=== PATIENT | male | born 1955 | race Caucasian/White ===

== ENCOUNTER 2019-11-15 12:01 | Inpatient (IN) | payer BC, MEDICARE ==
[~2019-11-15] VITALS: Ht 180.3 cm; Wt 83.9 kg
[~2019-11-15 12:01] MED LIST: VENL25TA4 PO
--- NOTE | 2019-11-15 12:02 | NUR ---
ADDISON [id number] FROM HOME C/O ABDOMINAL PAIN AND LOWER BACK PAIN, LAST BM 2 WEEKS AGO, TO ER BED 10, HOOKED TO MONITOR, CHANGED TO HOSP GOWN, PROVIDED WARM BLANKET, PATIENT AOx4, BREATHING EVEN AND UNLABORED, DR ESCOBAR AT BEDSIDE
[2019-11-15 12:34] LABS: BASOPHILS # (AUTO) 0.1 /CMM (0.0-0.2); BASOPHILS % (AUTO) 0.5 % (0.0-2.0); CALCIUM, SERUM 9.8 mg/dL (8.5-10.1); CREATININE 1.2 mg/dL (0.6-1.3); EOSINOPHILS % (AUTO) 0.3 % (0.0-6.0); HEMATOCRIT 54 % (39-51); HEMOGLOBIN 18.5 g/dL (13.5-17.5); LYMPHOCYTES # (AUTO) 1.9 /CMM (0.8-4.8); LYMPHOCYTES % (AUTO) 17.3 % (20.0-44.0); MEAN CORPUSCULAR HGB CONC 34 g/dl (31.0-36.0); MEAN CORPUSCULAR VOLUME 87 fL (80-96); MONOCYTES % (AUTO) 8.9 % (2.0-12.0); PLATELET COUNT (AUTO) 183 /CMM (150-450); POTASSIUM 4.2 mmol/L (3.5-5.1); RED BLOOD CELL COUNT(AUTO) 6.26 MIL/uL (4.5-6.0)
[2019-11-15 12:41] LABS: ALBUMIN 4.7 g/dL (3.4-5.0); BILIRUBIN,DIRECT 0.4 mg/dL (0.0-0.2); BILIRUBIN,TOTAL 1.3 mg/dL (0.2-1.0); TOTAL PROTEIN, SERUM 8.6 g/dL (6.4-8.2)
[2019-11-15] MEDS ORDERED: ACETAMINOPHEN ES 500 MG TABLET PO ONE (13:00)
[2019-11-15 13:14] LABS: BAND % (MANUAL) 2 % (0.0-5.0); LYMPHOCYTES % (MANUAL) 15 % (16-48); MONOCYTES % (MANUAL) 9 % (0-11.0); NEUTROPHILS % (MANUAL) 74 (42-76)
[2019-11-15] MEDS ORDERED: IV NS 0.9% 250 ML IV ONE (13:18)
[2019-11-15] MEDS ORDERED: IOHEXOL-350 100 ML VIAL IV ONE (13:18)
[2019-11-15] MEDS ORDERED: CT SWABBABLE VALVE TRANS SET 1 EA INFUS.SET MC ONE (13:18)
[2019-11-15] MEDS ORDERED: ACETAMINOPHEN ES 500 MG TABLET ONE (13:22)
--- NOTE | 2019-11-15 13:26 | NUR ---
WHEELED OUT VIA RNEY FOR CT SCAN
--- NOTE | 2019-11-15 14:41 | NUR ---
paged dr. veloz
--- NOTE | 2019-11-15 15:17 | NUR ---
ROOM ASSISGNMENT: [id number] MS
--- NOTE | 2019-11-15 15:33 | NUR ---
INSERTED NGT BUT PT DOES NOT WANT TO GO FURTHER WITH PROCEDURE. PT REFUSES TO HAVE ANOTHER ATTEMPT. EXPLAINED RISK AND BENEFIT BUT PT STILL REFUSING.
--- NOTE | 2019-11-15 15:41 | NUR ---
REPORT GIVEN TO ERNA JACINTO OF [facility] UN[facility]
[2019-11-15] MEDS ORDERED: IV D5/0.45 NACL 1,000 ML IV PRN (15:44)
--- NOTE | 2019-11-15 15:56 | NUR ---
WATER ENEMA DONE. PATIENT TOLERATED PROCEDURE WELL.
[2019-11-15] MEDS ORDERED: HYDROCODONE/APAP 5/325MG 1 EACH TABLET PO PRN (16:00)
[2019-11-15] MEDS ORDERED: MORPHINE SULFATE INJ 2 MG/ML DISP.SYRIN IV PRN (16:00)
[2019-11-15] MEDS ORDERED: MAGNESIUM HYDROXIDE 30 ML UDC PO PRN (16:00)
[2019-11-15] MEDS ORDERED: ACETAMINOPHEN 325 MG TABLET PO PRN (16:00)
[2019-11-15] MEDS ORDERED: Z GUARD REMEDY 2 OZ OINT TP PRN (16:00)
[2019-11-15] MEDS ORDERED: ONDANSETRON HCL/PF 4 MG/2 ML VIAL IVP PRN (16:00)
[2019-11-15] MEDS ORDERED: MAG HYDROX/AL HYDROX/SIMETH 30 ML UDC PO PRN (16:00)
[2019-11-15] MEDS ORDERED: ZOLPIDEM TARTRATE 5 MG TABLET PO PRN (16:00)
--- NOTE | 2019-11-15 16:46 | NUR ---
MS RN ADMITTING NOTE Received report from Mata in ER. Patient is A/O x4, showing no signs of acute distress or SOB, 95% on RA. BP 124/93 HR 91 T 97.3F RR 16. Patient report 0/10 on the pain scale. IV line in the RAC #18g is clean and intact. Skin assessed, skin is intact. Belongings at the bedside, belongings list done. Bed is in lowest position, side rails x3 in upright position, call light is within reach and patient is aware of how to call for assistance when needed. WIll continue with plan of care.
--- NOTE | 2019-11-15 17:18 | NUR ---
RN NOTE Received call that patient is to go into surgery for Sigmoidoscopy. Consent signed and placed in chart. Checklist done.
[2019-11-15] MEDS ORDERED: ANESTHESIA TRAY IN PYXIS 1 EA TRAY MC ONE (17:38)
--- NOTE | 2019-11-15 17:43 | NUR ---
RN NOTE Patient went down for surgery with Dr. Boroks.
--- NOTE | 2019-11-15 18:31 | NUR ---
RN NOTE Patient is back from surgery at 1830, A/O x4, showing no signs of acute distress or SOB, BP 131/89, HR 78, RR 14, O2 98% on RA T 97.8F pain 0/10. IV line in the RAC #18g is clean and intact. Bed is in lowest position, side rails x3 in upright position, call light is within reach and patient is aware of how to call for assistance when needed. Will endorse to commercial lender
--- NOTE | 2019-11-15 19:30 | NUR ---
MS RN OPENING NOTES RECEIVED PATIENT IN BED ALERT AND ORIENTED X 3. VERBALLY RESPONSIVE AND ABLE TO FOLLOW DIRECTIONS. BREATHING REGULAR AND UNLABORED ON ROOM AIR. RIGHT AC G18 IV LINE INTACT AND PATENT, INFUSING WELL WITH NO BLEEDING OR S/S OF INFILTRATION NOTED. DENIES ANY SUICIDAL/HOMICIDAL IDEATION. NO COMPLAINTS OF PAIN/DISCOMFORT REPORTED AT THIS TIME. BED LOW AND LOCKED, ON SEMI FOWLERS POSITION. CALL LIGHT IN REACH. WILL CONTINUE TO MONITOR.
[2019-11-15 20:00] VITALS: BP 142/88
--- NOTE | 2019-11-15 23:00 | NUR ---
MS RN NOTES CALLED AND SPOKE TO REGARDING PATIENT WANTING TO HAVE WATER, ORDERED OK FOR ICE CHIPS.
--- NOTE | 2019-11-16 06:45 | NUR ---
MS RN CLOSING NOTES PATIENT IN BED ALERT AND ORIENTED X 3. VERBALLY RESPONSIVE AND ABLE TO FOLLOW DIRECTIONS. BREATHING REGULAR AND UNLABORED ON ROOM AIR. RIGHT AC G18 IV LINE PATENT AND INFUSING WELL. NO COMPLAINTS OF PAIN/DISCOMFORT REPORTED AT THIS TIME. BED LOW AND LOCKED, ON SEMI FOWLERS POSITION. CALL LIGHT IN REACH. WILL ENDORSE TO MORNING SHIFT FOR NUVIA.
[2019-11-16] MEDS ORDERED: IV NS 0.9% 1,000 ML IV PRN (07:02)
[2019-11-16 07:24] LABS: ALBUMIN 3.6 g/dL (3.4-5.0); BILIRUBIN,TOTAL 0.9 mg/dL (0.2-1.0); CALCIUM, SERUM 8.6 mg/dL (8.5-10.1); CREATININE 0.9 mg/dL (0.6-1.3); PHOSPHORUS 3.2 mg/dL (2.5-4.9); POTASSIUM 3.2 mmol/L (3.5-5.1)
[2019-11-16 08:00] VITALS: BP 104/77
[2019-11-16 08:05] LABS: THYROID STIMULATING HORMONE 1.47 uIU/mL (0.358-3.74)
[2019-11-16] MEDS ORDERED: ATORVASTATIN 40 MG TABLET PO SCH (09:00)
[2019-11-16] MEDS ORDERED: PANTOPRAZOLE 40 MG VIAL IV SCH (09:00)
[2019-11-16] MEDS ORDERED: NICOTINE PATCH (14MG) 14 MG PATCH.TD24 TD SCH (09:00)
[2019-11-16 09:42] LABS: BASOPHILS % (AUTO) 0.4 % (0.0-2.0); EOSINOPHILS % (AUTO) 1.2 % (0.0-6.0); HEMATOCRIT 48 % (39-51); HEMOGLOBIN 16.3 g/dL (13.5-17.5); LYMPHOCYTES % (AUTO) 37.8 % (20.0-44.0); MEAN CORPUSCULAR HGB CONC 34 g/dl (31.0-36.0); MEAN CORPUSCULAR VOLUME 86 fL (80-96); MONOCYTES # (AUTO) 0.7 /CMM (0.1-1.30); MONOCYTES % (AUTO) 13.4 % (2.0-12.0); NEUTROPHILS # (AUTO) 2.6 /CMM (1.8-8.9); NEUTROPHILS % (AUTO) 47.2 % (43.0-81.0); PLATELET COUNT (AUTO) 156 /CMM (150-450); RED BLOOD CELL COUNT(AUTO) 5.53 MIL/uL (4.5-6.0); WHITE BLOOD COUNT (AUTO) 5.4 K/uL (4.3-11.0)
[2019-11-16] MEDS ORDERED: POTASSIUM CHLORIDE 20 MEQ POWDER PACKET PO SCH (10:30)
[2019-11-16] MEDS ORDERED: METOPROLOL TARTRATE 50 MG TABLET PO SCH (12:00)
[2019-11-16 12:21] VITALS: BP 104/77
--- NOTE | 2019-11-16 14:30 | NUR ---
Patient cleared for d/c home by MD. Patient awake alert and oriented x4 , ambulatory, steady gait. VS are stable and within baseline; breathing unlabored and even on room air. Denies pain and any discomfort. All needs attended prior discharge.Education and discharge instructions provided to the patient; patient verbalized understanding. Patient will f/u with PCP in one week and follow recommended diet. IV line removed , ID wrist band removed. PAtient signed valuable form and all belongings with the patient. Patient safely transferred to [facility] accompanied by a nurse.
== END 2019-11-16 14:22 | disposition home or self-care (01) | DRG 344 ==
LOC: ER 12:02 → TELE 15:35 → MED 16:43
PROVIDERS: ADMIT Nurse Practitioner Acute Care; ATTEND Nurse Practitioner Acute Care
PROC: 0D9N8ZZ Drainage of Sigmoid Colon, Via Natural or Artificial Opening Endoscopic (ICD-10-PCS; principal; 2019-11-15)
DX: K56.2 Volvulus (principal); N17.0 Acute kidney failure with tubular necrosis; I87.1 Compression of vein; K20.9 Esophagitis, unspecified; E86.0 Dehydration; I25.10 Atherosclerotic heart disease of native coronary artery without angina pectoris; Z95.5 Presence of coronary angioplasty implant and graft; I71.4 Abdominal aortic aneurysm, without rupture; I10 Essential (primary) hypertension; I25.2 Old myocardial infarction; N40.0 Benign prostatic hyperplasia without lower urinary tract symptoms; F17.210 Nicotine dependence, cigarettes, uncomplicated; E78.5 Hyperlipidemia, unspecified; D75.1 Secondary polycythemia; I73.9 Peripheral vascular disease, unspecified; R74.8 Abnormal levels of other serum enzymes; J43.2 Centrilobular emphysema; I70.0 Atherosclerosis of aorta
CPT/HCPCS: 36415; 45330; 80048-TC; 80053-TC; 80061-TC; 80076-TC; 83605-TC; 83690-TC; 83735-TC; 84100-TC; 84443-TC; 84484-TC; 85025-TC; 85378-TC; 85730-TC; 86850-TC; 87081-TC; C9113; G0378; J2704; J3490; J7050; Q9967

== ENCOUNTER 2023-07-28 11:14 | Inpatient (IN) | payer MEDICARE ==
[~2023-07-28] VITALS: Ht 180.3 cm; Wt 79.2 kg
[2023-07-28 12:00] LABS: BASOPHILS % (AUTO) 0.3 % (0.0-2.0); EOSINOPHILS % (AUTO) 0.3 % (0.0-6.0); HEMATOCRIT 50 % (39-51); HEMOGLOBIN 16.9 g/dL (13.5-17.5); LYMPHOCYTES # (AUTO) 0.6 K/uL (0.8-4.8); LYMPHOCYTES % (AUTO) 23.9 % (20.0-44.0); MEAN CORPUSCULAR HEMOGLOBIN 29 PG (26.0-33.0); MEAN CORPUSCULAR HGB CONC 34 g/dl (31.0-36.0); MEAN CORPUSCULAR VOLUME 85 fL (80-96); MONOCYTES # (AUTO) 0.4 K/uL (0.1-1.30); MONOCYTES % (AUTO) 14.5 % (2.0-12.0); NEUTROPHILS # (AUTO) 1.6 K/uL (1.8-8.9); PLATELET COUNT (AUTO) 83 K/uL (150-450); RED BLOOD CELL COUNT(AUTO) 5.87 MIL/uL (4.5-6.0); RED CELL DISTRIBUTION WIDTH 14.7 % (11.5-15.0); WHITE BLOOD COUNT (AUTO) 2.6 K/uL (4.3-11.0)
[2023-07-28 12:11] LABS: INR 0.98 (0.91-1.10); PARTIAL THROMBOPLASTIN TIME 31.8 SEC (24.3-34.3); PROTHROMBIN TIME 10.4 SECS (9.2-11.1)
[2023-07-28 12:13] LABS: CALCIUM, SERUM 9.2 mg/dL (8.5-10.1); CARBON DIOXIDE 26 mmol/L (21-32); CHLORIDE 93 mmol/L (98-107); CREATININE 1.2 mg/dL (0.6-1.3); GLUCOSE 138 mg/dL (74-106); POTASSIUM 4.2 mmol/L (3.5-5.1); SODIUM SERUM 128 mmol/L (136-145); UREA NITROGEN, BLOOD 20 mg/dL (7-18)
[2023-07-28 12:25] LABS: ALANINE AMINOTRANSFERASE 33 U/L (12-78); ALBUMIN 3.8 g/dL (3.4-5.0); ALKALINE PHOSPHATASE 186 U/L (46-116); ASPARTATE AMINOTRANSFERASE 49 U/L (15-37); BILIRUBIN,DIRECT 0.3 mg/dL (0.0-0.2); NT-PRO BNP 1577 pg/mL (0-125); TOTAL PROTEIN, SERUM 7.9 g/dL (6.4-8.2)
[2023-07-28] MEDS ORDERED: FURO-144 PO (13:30)
[2023-07-28] MEDS ORDERED: FUROSEMIDE 20 MG/2 ML VIAL ONE (14:14)
[2023-07-28] MEDS ORDERED: FUROSEMIDE 20 MG/2 ML VIAL IV ONE (14:30)
[2023-07-28] MEDS ORDERED: ONDANSETRON HCL/PF 4 MG/2 ML VIAL IVP PRN (17:00)
[2023-07-28] MEDS ORDERED: ACETAMINOPHEN 325 MG TABLET PO PRN (17:00)
[2023-07-28] MEDS ORDERED: Z GUARD REMEDY 4 OZ OINT TP PRN (17:00)
[2023-07-28] MEDS ORDERED: MAG HYDROX/AL HYDROX/SIMETH 30 ML UDC PO PRN (17:00)
[2023-07-28] MEDS ORDERED: MAGNESIUM HYDROXIDE 30 ML UDC PO PRN (17:00)
[2023-07-28] MEDS ORDERED: FUROSEMIDE 40 MG/4 ML VIAL ONE (20:04)
[2023-07-28] MEDS: FUROSEMIDE 40 MG/4 ML VIAL IV SCH (20:11)
[2023-07-28] MEDS ORDERED: ENOXAPARIN SODIUM 40 MG/0.4 ML DISP.SYRIN SQ ONE (21:30)
[2023-07-28] MEDS: ENOXAPARIN SODIUM 40 MG/0.4 ML DISP.SYRIN SQ SCH (21:31)
[2023-07-29] MEDS ORDERED: ACETAMINOPHEN 325 MG TABLET ONE (01:23)
[2023-07-29] MEDS ORDERED: FUROSEMIDE 40 MG/4 ML VIAL ONE ×3 (02:24→14:04)
[2023-07-29] MEDS: FUROSEMIDE 40 MG/4 ML VIAL IV SCH ×4 (02:27→21:04)
[2023-07-29] MEDS ORDERED: PANTOPRAZOLE 40 MG TABLET.DR PO ONE (08:15)
[2023-07-29] MEDS: PANTOPRAZOLE 40 MG TABLET.DR PO SCH (08:22)
[2023-07-29 09:44] LABS: BASOPHILS % (AUTO) 0.2 % (0.0-2.0); EOSINOPHILS % (AUTO) 0.2 % (0.0-6.0); HEMATOCRIT 52 % (39-51); HEMOGLOBIN 17.4 g/dL (13.5-17.5); LYMPHOCYTES # (AUTO) 1.4 K/uL (0.8-4.8); LYMPHOCYTES % (AUTO) 29.9 % (20.0-44.0); MEAN CORPUSCULAR HEMOGLOBIN 29 PG (26.0-33.0); MEAN CORPUSCULAR HGB CONC 34 g/dl (31.0-36.0); MEAN CORPUSCULAR VOLUME 86 fL (80-96); MONOCYTES # (AUTO) 0.9 K/uL (0.1-1.30); MONOCYTES % (AUTO) 20.4 % (2.0-12.0); NEUTROPHILS # (AUTO) 2.3 K/uL (1.8-8.9); NEUTROPHILS % (AUTO) 49.3 % (43.0-81.0); PLATELET COUNT (AUTO) 79 K/uL (150-450); RED BLOOD CELL COUNT(AUTO) 6.02 MIL/uL (4.5-6.0); RED CELL DISTRIBUTION WIDTH 14.9 % (11.5-15.0); WHITE BLOOD COUNT (AUTO) 4.6 K/uL (4.3-11.0)
[2023-07-29 10:14] LABS: CALCIUM, SERUM 8.9 mg/dL (8.5-10.1); CREATININE 1.1 mg/dL (0.6-1.3); MAGNESIUM 2.1 mg/dL (1.8-2.4); PHOSPHORUS 4.3 mg/dL (2.5-4.9); POTASSIUM 3.8 mmol/L (3.5-5.1)
[2023-07-29 11:15] LABS: THYROID STIMULATING HORMONE 3.939 uIU/mL (0.358-3.74)
[2023-07-29 11:39] LABS: ANISOCYTOSIS 1+; BASOPHILS % (MANUAL) 0 % (0.0-2.0); EOSINOPHILS % (MANUAL) 0 % (0-4); LYMPHOCYTES % (MANUAL) 22 % (16-48); MONOCYTES % (MANUAL) 20 % (0-11.0); NEUTROPHILS % (MANUAL) 58 (42-76); PLATELET ESTIMATE DECREASED
[2023-07-29] MEDS ORDERED: CARVEDILOL 3.125 MG TABLET ONE (15:08)
[2023-07-29] MEDS: CARVEDILOL 3.125 MG TABLET PO SCH ×2 (15:15→17:08)
[2023-07-29 16:00] VITALS: BP 101/69; TEMP 98.7; O2SAT 97
[2023-07-29] MEDS: HYDROCODONE/APAP 5/325MG TABLET PO PRN ×2 (17:17→23:15)
[2023-07-29] MEDS ORDERED: LOSARTAN POTASSIUM 25 MG TABLET PO SCH (18:30)
[2023-07-29 20:00] VITALS: BP 98/67; TEMP 98.4; O2SAT 95
[2023-07-29] MEDS: ENOXAPARIN SODIUM 40 MG/0.4 ML DISP.SYRIN SQ SCH (21:14)
[2023-07-29] MEDS: POLYETHYLENE GLYCOL 3350 17 GM POWD.PACK PO SCH (23:08)
[2023-07-29] MEDS: DOCUSATE SODIUM 100 MG CAPSULE PO SCH (23:08)
[2023-07-30] VITALS (69 sets, daily range): BP systolic 74–150; BP diastolic 34–95; TEMP 97–98.7; O2SAT 87–98
[2023-07-30] MEDS ORDERED: MIDODRINE HCL (5MG) 5 MG TABLET PO PRN (00:30)
[2023-07-30] MEDS ORDERED: oxyCODONE/APAP (5/325 MG) 1 UDTAB TABLET PO ONE (00:30)
[2023-07-30] MEDS ORDERED: MIDODRINE HCL (5MG) 5 MG TABLET ONE (00:31)
[2023-07-30] MEDS ORDERED: NOREPINEPHRINE 8MG/250ML RTU 250 ML IV ONE (03:54)
[2023-07-30] MEDS ORDERED: NOREPINEPHRINE 8 MG in IV NS 0.9% 242 ML IV PRN (04:00)
[2023-07-30] MEDS ORDERED: NOREPINEPHRINE 4 MG/4 ML AMPUL IV ONE ×2 (04:01→04:02)
[2023-07-30] MEDS ORDERED: oxyCODONE/APAP (5/325 MG) 1 UDTAB TABLET ONE (04:25)
[2023-07-30 07:12] LABS: BASOPHILS % (AUTO) 0.2 % (0.0-2.0); EOSINOPHILS % (AUTO) 0.1 % (0.0-6.0); HEMATOCRIT 49 % (39-51); HEMOGLOBIN 16.7 g/dL (13.5-17.5); LYMPHOCYTES % (AUTO) 24.8 % (20.0-44.0); MEAN CORPUSCULAR HEMOGLOBIN 29 PG (26.0-33.0); MEAN CORPUSCULAR HGB CONC 34 g/dl (31.0-36.0); MEAN CORPUSCULAR VOLUME 84 fL (80-96); MONOCYTES # (AUTO) 1.2 K/uL (0.1-1.30); MONOCYTES % (AUTO) 15.4 % (2.0-12.0); NEUTROPHILS # (AUTO) 4.8 K/uL (1.8-8.9); NEUTROPHILS % (AUTO) 59.5 % (43.0-81.0); PLATELET COUNT (AUTO) 135 K/uL (150-450); RED BLOOD CELL COUNT(AUTO) 5.83 MIL/uL (4.5-6.0); RED CELL DISTRIBUTION WIDTH 14.7 % (11.5-15.0); WHITE BLOOD COUNT (AUTO) 8.1 K/uL (4.3-11.0)
[2023-07-30] MEDS: DOCUSATE SODIUM 100 MG CAPSULE PO SCH ×2 (08:19→16:33)
[2023-07-30] MEDS: POLYETHYLENE GLYCOL 3350 17 GM POWD.PACK PO SCH ×2 (08:19→08:33)
[2023-07-30] MEDS: PANTOPRAZOLE 40 MG TABLET.DR PO SCH (08:19)
[2023-07-30] MEDS: FUROSEMIDE 40 MG/4 ML VIAL IV SCH (08:20)
[2023-07-30] MEDS: CARVEDILOL 3.125 MG TABLET PO SCH (08:20)
[2023-07-30 08:42] LABS: CALCIUM, SERUM 8.8 mg/dL (8.5-10.1); CREATININE 1.6 mg/dL (0.6-1.3); PHOSPHORUS 5.1 mg/dL (2.5-4.9); POTASSIUM 3.2 mmol/L (3.5-5.1)
[2023-07-30 09:24] LABS: THYROID STIMULATING HORMONE 3.837 uIU/mL (0.358-3.74); URIC ACID 7.9 mg/dL (2.6-7.2)
[2023-07-30] MEDS ORDERED: POTASSIUM CHLORIDE 20 MEQ TAB.PRT.SR PO STA (10:17)
[2023-07-30] MEDS ORDERED: SODIUM BICARBONATE SYR 50 MEQ/50 ML DISP.SYRIN IV STA (10:40)
[2023-07-30] MEDS: HYDROCODONE/APAP 5/325MG TABLET PO PRN (12:39)
[2023-07-30 15:07] LABS: CALCIUM, SERUM 8.8 mg/dL (8.5-10.1); CREATININE 1.7 mg/dL (0.6-1.3); POTASSIUM 3.5 mmol/L (3.5-5.1)
[2023-07-30] MEDS: ENOXAPARIN SODIUM 40 MG/0.4 ML DISP.SYRIN SQ SCH (21:37)
[2023-07-31] VITALS (66 sets, daily range): BP systolic 84–152; BP diastolic 39–84; TEMP 97.5–98.1; O2SAT 79–97
[2023-07-31] MEDS: HYDROCODONE/APAP 5/325MG TABLET PO PRN ×3 (00:40→21:57)
[2023-07-31 04:38] LABS: BASOPHILS % (AUTO) 0.1 % (0.0-2.0); HEMATOCRIT 47 % (39-51); HEMOGLOBIN 16.3 g/dL (13.5-17.5); LYMPHOCYTES # (AUTO) 1.4 K/uL (0.8-4.8); LYMPHOCYTES % (AUTO) 22.1 % (20.0-44.0); MEAN CORPUSCULAR HEMOGLOBIN 29 PG (26.0-33.0); MEAN CORPUSCULAR HGB CONC 35 g/dl (31.0-36.0); MEAN CORPUSCULAR VOLUME 84 fL (80-96); MONOCYTES # (AUTO) 0.9 K/uL (0.1-1.30); MONOCYTES % (AUTO) 13.1 % (2.0-12.0); NEUTROPHILS # (AUTO) 4.2 K/uL (1.8-8.9); NEUTROPHILS % (AUTO) 64.7 % (43.0-81.0); PLATELET COUNT (AUTO) 109 K/uL (150-450); RED BLOOD CELL COUNT(AUTO) 5.58 MIL/uL (4.5-6.0); RED CELL DISTRIBUTION WIDTH 14.7 % (11.5-15.0); WHITE BLOOD COUNT (AUTO) 6.5 K/uL (4.3-11.0)
[2023-07-31 04:58] LABS: ALBUMIN 3.3 g/dL (3.4-5.0); CALCIUM, SERUM 8.9 mg/dL (8.5-10.1); CREATININE 1.2 mg/dL (0.6-1.3); PHOSPHORUS 3.5 mg/dL (2.5-4.9); POTASSIUM 3.7 mmol/L (3.5-5.1)
[2023-07-31] MEDS: PANTOPRAZOLE 40 MG TABLET.DR PO SCH (07:30)
[2023-07-31] MEDS: DOCUSATE SODIUM 100 MG CAPSULE PO SCH ×2 (08:18→17:00)
[2023-07-31] MEDS: POLYETHYLENE GLYCOL 3350 17 GM POWD.PACK PO SCH (08:18)
[2023-07-31] MEDS: DOBUTamine 500 MG in IV D5W 210 ML IV PRN (11:42)
[2023-07-31] MEDS: ENOXAPARIN SODIUM 40 MG/0.4 ML DISP.SYRIN SQ SCH (22:00)
[2023-07-31] MEDS ORDERED: TRAZODONE 50 MG TABLET PO PRN (22:30)
[2023-08-01] VITALS (49 sets, daily range): BP systolic 82–139; BP diastolic 43–83; TEMP 97.4–98.6; O2SAT 91–97
[2023-08-01] MEDS ORDERED: MORPHINE SULFATE INJ 2 MG/ML DISP.SYRIN IV PRN (02:00)
[2023-08-01] MEDS: DOBUTamine 500 MG in IV D5W 210 ML IV PRN ×2 (04:08→21:37)
[2023-08-01 04:35] LABS: CALCIUM, SERUM 8.6 mg/dL (8.5-10.1); CREATININE 0.9 mg/dL (0.6-1.3); POTASSIUM 3.5 mmol/L (3.5-5.1)
[2023-08-01] MEDS: PANTOPRAZOLE 40 MG TABLET.DR PO SCH (07:30)
[2023-08-01] MEDS: DOCUSATE SODIUM 100 MG CAPSULE PO SCH (08:34)
[2023-08-01] MEDS: POLYETHYLENE GLYCOL 3350 17 GM POWD.PACK PO SCH (09:00)
[2023-08-01] MEDS: FUROSEMIDE 40 MG/4 ML VIAL IV SCH ×3 (09:05→16:54)
[2023-08-01] MEDS: POTASSIUM CHLORIDE 20 MEQ TAB.PRT.SR PO SCH ×2 (09:05→11:34)
[2023-08-01] MEDS: LIDOCAINE 5% (PATCH) 1 EA PATCH TP SCH (09:05)
[2023-08-01] MEDS: MORPHINE SULFATE INJ 2 MG/ML DISP.SYRIN IV PRN ×2 (11:59→16:53)
[2023-08-01] MEDS: ENOXAPARIN SODIUM 40 MG/0.4 ML DISP.SYRIN SQ SCH (20:39)
[2023-08-01] MEDS: HYDROCODONE/APAP 5/325MG TABLET PO PRN (21:28)
[2023-08-02] VITALS: BP 90/62; TEMP 97.9; O2SAT 97
[2023-08-02 04:00] VITALS: BP 109/74; TEMP 97.6; O2SAT 99
[2023-08-02 06:43] LABS: BASOPHILS % (AUTO) 0.2 % (0.0-2.0); EOSINOPHILS % (AUTO) 0.2 % (0.0-6.0); HEMATOCRIT 44 % (39-51); HEMOGLOBIN 15.3 g/dL (13.5-17.5); LYMPHOCYTES # (AUTO) 1.1 K/uL (0.8-4.8); LYMPHOCYTES % (AUTO) 21.3 % (20.0-44.0); MEAN CORPUSCULAR HEMOGLOBIN 29 PG (26.0-33.0); MEAN CORPUSCULAR HGB CONC 35 g/dl (31.0-36.0); MEAN CORPUSCULAR VOLUME 84 fL (80-96); MONOCYTES # (AUTO) 0.7 K/uL (0.1-1.30); MONOCYTES % (AUTO) 13.8 % (2.0-12.0); NEUTROPHILS # (AUTO) 3.2 K/uL (1.8-8.9); NEUTROPHILS % (AUTO) 64.5 % (43.0-81.0); PLATELET COUNT (AUTO) 115 K/uL (150-450); RED BLOOD CELL COUNT(AUTO) 5.26 MIL/uL (4.5-6.0); RED CELL DISTRIBUTION WIDTH 14.3 % (11.5-15.0)
[2023-08-02 07:14] LABS: BILIRUBIN,TOTAL 1.1 mg/dL (0.2-1.0); CALCIUM, SERUM 8.6 mg/dL (8.5-10.1); PHOSPHORUS 3.2 mg/dL (2.5-4.9); POTASSIUM 3.7 mmol/L (3.5-5.1); TOTAL PROTEIN, SERUM 7.2 g/dL (6.4-8.2)
[2023-08-02] MEDS: PANTOPRAZOLE 40 MG TABLET.DR PO SCH (07:51)
[2023-08-02 08:00] VITALS: BP 106/74; TEMP 97.7; O2SAT 94
[2023-08-02] MEDS: LIDOCAINE 5% (PATCH) 1 EA PATCH TP SCH (08:42)
[2023-08-02] MEDS: POLYETHYLENE GLYCOL 3350 17 GM POWD.PACK PO SCH (08:43)
[2023-08-02] MEDS: MORPHINE SULFATE INJ 2 MG/ML DISP.SYRIN IV PRN (10:17)
[2023-08-02 12:00] VITALS: BP 100/73; TEMP 98; O2SAT 96
[2023-08-02] MEDS: GABAPENTIN 100 MG CAPSULE PO SCH ×2 (12:56→16:52)
[2023-08-02] MEDS: HYDROCODONE/APAP 5/325MG TABLET PO PRN (12:56)
[2023-08-02 16:00] VITALS: BP 92/60; TEMP 98.5; O2SAT 97
[2023-08-02 16:11] LABS: PTH, INTACT 64 pg/mL (15-65)
[2023-08-02] MEDS: DOBUTamine 500 MG in IV D5W 210 ML IV PRN (16:55)
[2023-08-02] MEDS: FUROSEMIDE 40 MG TABLET PO SCH (17:33)
[2023-08-02 20:00] VITALS: BP 109/69; TEMP 98.4; O2SAT 94
[2023-08-02] MEDS: ENOXAPARIN SODIUM 40 MG/0.4 ML DISP.SYRIN SQ SCH (21:07)
[2023-08-03] VITALS: BP 116/64; TEMP 98.2; O2SAT 94
[2023-08-03 04:00] VITALS: BP 114/67; TEMP 99.3; O2SAT 92
[2023-08-03 05:10] LABS: *SPE A/G RATIO 0.9 (0.7-1.7); *SPE ALBUMIN 2.9 g/dL (2.9-4.4); *SPE ALPHA-1-GLOBULIN 0.4 g/dL (0.0-0.4); *SPE BETA GLOBULIN 0.9 g/dL (0.7-1.3); *SPE GLOBULIN, TOTAL 3.4 g/dL (2.2-3.9); *SPE M-SPIKE Not Observed g/dL (Not Observed); *SPE PROTEIN TOTAL 6.3 g/dL (6.0-8.5); *SPEGAMMA GLOBULIN 1.2 g/dL (0.4-1.8)
[2023-08-03] MEDS: PANTOPRAZOLE 40 MG TABLET.DR PO SCH (06:32)
[2023-08-03 07:10] LABS: BASOPHILS % (AUTO) 0.2 % (0.0-2.0); HEMATOCRIT 45 % (39-51); HEMOGLOBIN 15.6 g/dL (13.5-17.5); LYMPHOCYTES # (AUTO) 0.6 K/uL (0.8-4.8); LYMPHOCYTES % (AUTO) 6.5 % (20.0-44.0); MEAN CORPUSCULAR HEMOGLOBIN 29 PG (26.0-33.0); MEAN CORPUSCULAR HGB CONC 35 g/dl (31.0-36.0); MEAN CORPUSCULAR VOLUME 84 fL (80-96); MONOCYTES # (AUTO) 0.6 K/uL (0.1-1.30); MONOCYTES % (AUTO) 6.8 % (2.0-12.0); NEUTROPHILS # (AUTO) 7.6 K/uL (1.8-8.9); NEUTROPHILS % (AUTO) 86.5 % (43.0-81.0); PLATELET COUNT (AUTO) 128 K/uL (150-450); RED BLOOD CELL COUNT(AUTO) 5.37 MIL/uL (4.5-6.0); RED CELL DISTRIBUTION WIDTH 14.2 % (11.5-15.0); WHITE BLOOD COUNT (AUTO) 8.8 K/uL (4.3-11.0)
[2023-08-03 07:32] LABS: BILIRUBIN,TOTAL 1.9 mg/dL (0.2-1.0); CALCIUM, SERUM 8.7 mg/dL (8.5-10.1); CREATININE 0.9 mg/dL (0.6-1.3); MAGNESIUM 1.8 mg/dL (1.8-2.4); PHOSPHORUS 2.4 mg/dL (2.5-4.9); POTASSIUM 3.4 mmol/L (3.5-5.1); TOTAL PROTEIN, SERUM 7.2 g/dL (6.4-8.2)
[2023-08-03] MEDS: POLYETHYLENE GLYCOL 3350 17 GM POWD.PACK PO SCH (09:00)
[2023-08-03] MEDS: GABAPENTIN 100 MG CAPSULE PO SCH ×3 (09:20→16:19)
[2023-08-03] MEDS: FUROSEMIDE 40 MG TABLET PO SCH (09:20)
[2023-08-03] MEDS: LIDOCAINE 5% (PATCH) 1 EA PATCH TP SCH (09:21)
[2023-08-03 09:54] LABS: THYROID STIMULATING HORMONE 2.002 uIU/mL (0.358-3.74); URIC ACID 6.3 mg/dL (2.6-7.2)
[2023-08-03] MEDS ORDERED: POTASSIUM CHLORIDE 20 MEQ TAB.PRT.SR PO SCH (10:00)
[2023-08-03 10:18] LABS: MAGNESIUM 1.9 mg/dL (1.8-2.4); PHOSPHORUS 2.6 mg/dL (2.5-4.9)
[2023-08-03 10:20] VITALS: BP 105/64; TEMP 98.5; O2SAT 95
[2023-08-03] MEDS: HYDROCODONE/APAP 5/325MG TABLET PO PRN (11:06)
[2023-08-03 12:00] VITALS: BP 107/68; TEMP 97.8; O2SAT 93
[2023-08-03 16:00] VITALS: BP 115/67; TEMP 97.9; O2SAT 94
[2023-08-03] MEDS ORDERED: Sodium Phosphate 15 MMOL in IV NS 0.9% 245 ML IV ONE (17:00)
[2023-08-03] MEDS: MORPHINE SULFATE INJ 2 MG/ML DISP.SYRIN IV PRN (19:50)
[2023-08-03 20:00] VITALS: BP 126/72; TEMP 98.4; O2SAT 94
[2023-08-03] MEDS ORDERED: ENOXAPARIN SODIUM 80 MG/0.8 ML DISP.SYRIN SQ SCH (21:00)
[2023-08-04] VITALS (17 sets, daily range): BP systolic 86–136; BP diastolic 49–82; TEMP 97.6–98.6; O2SAT 88–97
[2023-08-04 07:03] LABS: BASOPHILS % (AUTO) 0.2 % (0.0-2.0); EOSINOPHILS % (AUTO) 0.1 % (0.0-6.0); HEMATOCRIT 47 % (39-51); HEMOGLOBIN 15.9 g/dL (13.5-17.5); LYMPHOCYTES # (AUTO) 1.4 K/uL (0.8-4.8); LYMPHOCYTES % (AUTO) 16.4 % (20.0-44.0); MEAN CORPUSCULAR HEMOGLOBIN 29 PG (26.0-33.0); MEAN CORPUSCULAR HGB CONC 34 g/dl (31.0-36.0); MEAN CORPUSCULAR VOLUME 85 fL (80-96); MONOCYTES # (AUTO) 1.4 K/uL (0.1-1.30); MONOCYTES % (AUTO) 16.2 % (2.0-12.0); NEUTROPHILS # (AUTO) 5.8 K/uL (1.8-8.9); NEUTROPHILS % (AUTO) 67.1 % (43.0-81.0); PLATELET COUNT (AUTO) 153 K/uL (150-450); RED BLOOD CELL COUNT(AUTO) 5.55 MIL/uL (4.5-6.0); RED CELL DISTRIBUTION WIDTH 14.3 % (11.5-15.0); WHITE BLOOD COUNT (AUTO) 8.6 K/uL (4.3-11.0)
[2023-08-04] MEDS: PANTOPRAZOLE 40 MG TABLET.DR PO SCH (07:30)
[2023-08-04 07:39] LABS: CALCIUM, SERUM 8.5 mg/dL (8.5-10.1); CREATININE 0.9 mg/dL (0.6-1.3); POTASSIUM 3.5 mmol/L (3.5-5.1)
[2023-08-04] MEDS: LIDOCAINE 5% (PATCH) 1 EA PATCH TP SCH (08:00)
[2023-08-04 08:13] LABS: INR 1.05 (0.91-1.10); PARTIAL THROMBOPLASTIN TIME 28.9 SEC (24.3-34.3); PROTHROMBIN TIME 11.1 SECS (9.2-11.1)
[2023-08-04] MEDS: POLYETHYLENE GLYCOL 3350 17 GM POWD.PACK PO SCH (09:00)
[2023-08-04] MEDS: GABAPENTIN 100 MG CAPSULE PO SCH ×3 (09:00→17:51)
[2023-08-04] MEDS: FUROSEMIDE 40 MG TABLET PO SCH (09:00)
[2023-08-04] MEDS ORDERED: IODIXANOL 150 ML IV ONE ×2 (10:57→11:37)
[2023-08-04] MEDS ORDERED: IV NS 0.9% 1,000 ML ONE (10:57)
[2023-08-04] MEDS ORDERED: IV SET PRIMARY PUMP SET 1 EA INFUS.SET MC ONE (10:57)
[2023-08-04] MEDS ORDERED: LIDOCAINE HCL/MPF 1% 30 ML VIAL IJ ONE (11:02)
[2023-08-04] MEDS ORDERED: FENTANYL PF 100MCG/2ML AMPUL ONE (11:17)
[2023-08-04] MEDS: HYDROCODONE/APAP 5/325MG TABLET PO PRN ×2 (13:39→21:07)
[2023-08-04 16:12] LABS: LYMPHOCYTES % (MANUAL) 15 % (16-48); MONOCYTES % (MANUAL) 15 % (0-11.0); NEUTROPHILS % (MANUAL) 70 (42-76)
[2023-08-04 16:13] LABS: PLATELET ESTIMATE ADEQUATE
[2023-08-04] MEDS: ENOXAPARIN SODIUM 80 MG/0.8 ML DISP.SYRIN SQ SCH (21:00)
[2023-08-05] VITALS (13 sets, daily range): BP systolic 79–128; BP diastolic 47–83; TEMP 97.6–98.8; O2SAT 94–97
[2023-08-05] MEDS: PANTOPRAZOLE 40 MG TABLET.DR PO SCH (07:30)
[2023-08-05] MEDS: LIDOCAINE 5% (PATCH) 1 EA PATCH TP SCH (08:00)
[2023-08-05 08:19] LABS: THYROID STIMULATING HORMONE 3.87 uIU/mL (0.358-3.74); URIC ACID 6.2 mg/dL (2.6-7.2)
[2023-08-05] MEDS: FUROSEMIDE 40 MG TABLET PO SCH (09:00)
[2023-08-05] MEDS: POLYETHYLENE GLYCOL 3350 17 GM POWD.PACK PO SCH (09:00)
[2023-08-05] MEDS: ENOXAPARIN SODIUM 80 MG/0.8 ML DISP.SYRIN SQ SCH ×2 (09:00→21:44)
[2023-08-05] MEDS: GABAPENTIN 100 MG CAPSULE PO SCH ×3 (09:00→17:40)
[2023-08-05 09:42] LABS: CALCIUM, SERUM 8.8 mg/dL (8.5-10.1); CREATININE 1.1 mg/dL (0.6-1.3); PHOSPHORUS 3.7 mg/dL (2.5-4.9); POTASSIUM 4.2 mmol/L (3.5-5.1)
[2023-08-05] MEDS ORDERED: IV SET PRIMARY PUMP SET 1 EA INFUS.SET MC ONE (10:23)
[2023-08-05] MEDS ORDERED: IV NS 0.9% 1,000 ML ONE (10:23)
[2023-08-05] MEDS ORDERED: IODIXANOL 150 ML IV ONE (10:24)
[2023-08-05] MEDS ORDERED: LIDOCAINE HCL/MPF 1% 30 ML VIAL IJ ONE (10:24)
[2023-08-05] MEDS ORDERED: FENTANYL PF 100MCG/2ML AMPUL ONE (11:13)
[2023-08-05] MEDS ORDERED: MIDAZOLAM HCL 2 MG/2ML VIAL ONE (11:14)
[2023-08-05] MEDS ORDERED: HEPARIN SODIUM, PORCINE 5000 UNITS/1 ML VIAL ONE ×2 (11:25→11:47)
[2023-08-05] MEDS ORDERED: HEPARIN SODIUM, PORCINE 1,000 UNIT/ML VIAL ONE (11:25)
[2023-08-05] MEDS ORDERED: IODIXANOL 320MG/ML 50 ML IV ONE (11:31)
[2023-08-05] MEDS ORDERED: CLOPIDOGREL BISULFATE 300 MG TABLET ONE (12:04)
[2023-08-05] MEDS: HYDROCODONE/APAP 5/325MG TABLET PO PRN (19:50)
[2023-08-06] VITALS (22 sets, daily range): BP systolic 82–130; BP diastolic 50–94; TEMP 97.9–98.8; O2SAT 89–100
[2023-08-06 04:31] LABS: BASOPHILS % (AUTO) 0.1 % (0.0-2.0); HEMATOCRIT 26 % (39-51); HEMOGLOBIN 8.2 g/dL (13.5-17.5); LYMPHOCYTES # (AUTO) 1.1 K/uL (0.8-4.8); LYMPHOCYTES % (AUTO) 4.6 % (20.0-44.0); MEAN CORPUSCULAR HEMOGLOBIN 29 PG (26.0-33.0); MEAN CORPUSCULAR HGB CONC 31 g/dl (31.0-36.0); MEAN CORPUSCULAR VOLUME 93 fL (80-96); MONOCYTES # (AUTO) 0.5 K/uL (0.1-1.30); NEUTROPHILS # (AUTO) 22.7 K/uL (1.8-8.9); NEUTROPHILS % (AUTO) 93.3 % (43.0-81.0); PLATELET COUNT (AUTO) 70 K/uL (150-450); RED BLOOD CELL COUNT(AUTO) 2.82 MIL/uL (4.5-6.0); RED CELL DISTRIBUTION WIDTH 24.2 % (11.5-15.0); WHITE BLOOD COUNT (AUTO) 24.4 K/uL (4.3-11.0)
[2023-08-06 04:43] LABS: ALBUMIN 1.7 g/dL (3.4-5.0); BILIRUBIN,TOTAL 0.6 mg/dL (0.2-1.0); CALCIUM, SERUM 8.6 mg/dL (8.5-10.1); CREATININE 2.3 mg/dL (0.6-1.3); MAGNESIUM 2.1 mg/dL (1.8-2.4); POTASSIUM 4.5 mmol/L (3.5-5.1); TOTAL PROTEIN, SERUM 5.1 g/dL (6.4-8.2)
[2023-08-06 05:43] LABS: ANISOCYTOSIS 2+; BAND % (MANUAL) 1 % (0.0-5.0); LYMPHOCYTES % (MANUAL) 6 % (16-48); MONOCYTES % (MANUAL) 1 % (0-11.0); NEUTROPHILS % (MANUAL) 92 (42-76)
[2023-08-06 05:44] LABS: OVALOCYTES 1+; PLATELET ESTIMATE DECRE
[2023-08-06] MEDS: HYDROCODONE/APAP 5/325MG TABLET PO PRN ×3 (07:04→20:42)
[2023-08-06 08:26] LABS: BASOPHILS % (AUTO) 0.3 % (0.0-2.0); EOSINOPHILS % (AUTO) 0.4 % (0.0-6.0); HEMATOCRIT 43 % (39-51); HEMOGLOBIN 14.3 g/dL (13.5-17.5); LYMPHOCYTES % (AUTO) 16.2 % (20.0-44.0); MEAN CORPUSCULAR HEMOGLOBIN 29 PG (26.0-33.0); MEAN CORPUSCULAR HGB CONC 34 g/dl (31.0-36.0); MEAN CORPUSCULAR VOLUME 85 fL (80-96); MONOCYTES # (AUTO) 0.9 K/uL (0.1-1.30); NEUTROPHILS % (AUTO) 68.1 % (43.0-81.0); PLATELET COUNT (AUTO) 162 K/uL (150-450); RED BLOOD CELL COUNT(AUTO) 5.01 MIL/uL (4.5-6.0); RED CELL DISTRIBUTION WIDTH 14.6 % (11.5-15.0); WHITE BLOOD COUNT (AUTO) 5.9 K/uL (4.3-11.0)
[2023-08-06] MEDS: LIDOCAINE 5% (PATCH) 1 EA PATCH TP SCH (08:37)
[2023-08-06] MEDS: PANTOPRAZOLE 40 MG TABLET.DR PO SCH (08:37)
[2023-08-06] MEDS: CLOPIDOGREL BISULFATE 75 MG TABLET PO SCH (08:37)
[2023-08-06] MEDS: FUROSEMIDE 40 MG TABLET PO SCH (08:37)
[2023-08-06] MEDS: GABAPENTIN 100 MG CAPSULE PO SCH ×3 (08:37→16:25)
[2023-08-06] MEDS: POLYETHYLENE GLYCOL 3350 17 GM POWD.PACK PO SCH (08:38)
[2023-08-06] MEDS: ENOXAPARIN SODIUM 80 MG/0.8 ML DISP.SYRIN SQ SCH ×2 (08:50→21:45)
[2023-08-06] MEDS ORDERED: ALBUMIN 25% 25 GM in PREMIX 1 EA IV SCH (12:30)
[2023-08-07 04:00] VITALS: BP 105/69; TEMP 98; O2SAT 97
[2023-08-07 04:32] LABS: APPEARANCE,URINE CLOUDY (CLEAR); BILIRUBIN,URINE NEGATIVE (NEGATIVE); BLOOD, URINE 3+ Ery/uL (NEGATIVE); COLOR,URINE YELLOW (YELLOW); KETONES,URINE NEGATIVE (NEGATIVE); LEUKOCYTE ESTERASE ,URINE NEGATIVE (NEGATIVE); NITRITE, URINE NEGATIVE (NEGATIVE); PH,URINE 5.5 (5.0-8.0); PROTEIN,URINE 1+ mg/dl (NEGATIVE); UGLUCOSE TRACE mg/dL (NEGATIVE)
[2023-08-07] MEDS: HYDROCODONE/APAP 5/325MG TABLET PO PRN ×3 (04:32→19:03)
[2023-08-07 05:10] LABS: CREATININE, URINE 157.9 MG/DL (30.0-125.0); URINE TOTAL PROTEIN 66.8 mg/dL (0-11.9)
[2023-08-07 05:55] LABS: ADD URINE CULTURE YES; BACTERIA,URINE Moderate /HPF (None Seen); WBC,URINE NONE SEEN /HPF (0-3)
[2023-08-07 05:56] LABS: MUCUS,URINE Moderate /LPF (None Seen); SQUAMOUS EPITHELIAL CELL,UR None Seen /HPF (None Seen)
[2023-08-07 06:01] LABS: EOSINOPHIL,URINE None Seen
[2023-08-07 07:05] LABS: BASOPHILS % (AUTO) 0.3 % (0.0-2.0); EOSINOPHILS % (AUTO) 0.8 % (0.0-6.0); HEMATOCRIT 37 % (39-51); HEMOGLOBIN 12.8 g/dL (13.5-17.5); LYMPHOCYTES # (AUTO) 1.1 K/uL (0.8-4.8); LYMPHOCYTES % (AUTO) 22.9 % (20.0-44.0); MEAN CORPUSCULAR HEMOGLOBIN 29 PG (26.0-33.0); MEAN CORPUSCULAR HGB CONC 35 g/dl (31.0-36.0); MEAN CORPUSCULAR VOLUME 83 fL (80-96); MONOCYTES # (AUTO) 0.8 K/uL (0.1-1.30); MONOCYTES % (AUTO) 16.9 % (2.0-12.0); NEUTROPHILS # (AUTO) 2.9 K/uL (1.8-8.9); NEUTROPHILS % (AUTO) 59.1 % (43.0-81.0); PLATELET COUNT (AUTO) 175 K/uL (150-450); RED BLOOD CELL COUNT(AUTO) 4.42 MIL/uL (4.5-6.0); RED CELL DISTRIBUTION WIDTH 13.9 % (11.5-15.0); WHITE BLOOD COUNT (AUTO) 4.9 K/uL (4.3-11.0)
[2023-08-07 07:30] VITALS: BP 106/60; TEMP 97.7; O2SAT 93
[2023-08-07] MEDS: PANTOPRAZOLE 40 MG TABLET.DR PO SCH (07:40)
[2023-08-07 07:54] LABS: CALCIUM, SERUM 8.5 mg/dL (8.5-10.1); CREATININE 0.9 mg/dL (0.6-1.3); POTASSIUM 3.7 mmol/L (3.5-5.1)
[2023-08-07] MEDS: CLOPIDOGREL BISULFATE 75 MG TABLET PO SCH (08:44)
[2023-08-07] MEDS: GABAPENTIN 100 MG CAPSULE PO SCH ×3 (08:44→16:37)
[2023-08-07] MEDS: POLYETHYLENE GLYCOL 3350 17 GM POWD.PACK PO SCH ×2 (08:44→09:00)
[2023-08-07] MEDS: LIDOCAINE 5% (PATCH) 1 EA PATCH TP SCH (08:44)
[2023-08-07] MEDS: ENOXAPARIN SODIUM 80 MG/0.8 ML DISP.SYRIN SQ SCH ×2 (09:58→21:00)
[2023-08-07 11:16] LABS: NEUTROPHILS % (MANUAL) 65 (42-76)
[2023-08-07 11:17] LABS: LYMPHOCYTES % (MANUAL) 17 % (16-48); MONOCYTES % (MANUAL) 18 % (0-11.0); PLATELET ESTIMATE ADEQUATE
[2023-08-07 11:18] LABS: ANISOCYTOSIS 1+; HYPOCHROMASIA 1+
[2023-08-07 16:00] VITALS: BP 98/54; TEMP 97.9; O2SAT 95
[2023-08-07 20:00] VITALS: BP 97/58; TEMP 98.1; O2SAT 97
[2023-08-08] VITALS: BP 121/68; TEMP 98; O2SAT 96
[2023-08-08] MEDS: HYDROCODONE/APAP 5/325MG TABLET PO PRN ×6 (00:47→18:13)
[2023-08-08 07:10] LABS: BASOPHILS % (AUTO) 0.3 % (0.0-2.0); EOSINOPHILS % (AUTO) 0.5 % (0.0-6.0); HEMATOCRIT 38 % (39-51); LYMPHOCYTES # (AUTO) 0.8 K/uL (0.8-4.8); LYMPHOCYTES % (AUTO) 13.4 % (20.0-44.0); MEAN CORPUSCULAR HEMOGLOBIN 29 PG (26.0-33.0); MEAN CORPUSCULAR HGB CONC 35 g/dl (31.0-36.0); MEAN CORPUSCULAR VOLUME 83 fL (80-96); MONOCYTES # (AUTO) 0.7 K/uL (0.1-1.30); MONOCYTES % (AUTO) 11.9 % (2.0-12.0); NEUTROPHILS # (AUTO) 4.3 K/uL (1.8-8.9); NEUTROPHILS % (AUTO) 73.9 % (43.0-81.0); PLATELET COUNT (AUTO) 178 K/uL (150-450); RED CELL DISTRIBUTION WIDTH 14.3 % (11.5-15.0); WHITE BLOOD COUNT (AUTO) 5.9 K/uL (4.3-11.0)
[2023-08-08 07:29] LABS: CALCIUM, SERUM 8.4 mg/dL (8.5-10.1); CREATININE 0.9 mg/dL (0.6-1.3); POTASSIUM 3.7 mmol/L (3.5-5.1)
[2023-08-08 07:30] VITALS: BP 102/61; TEMP 97.9; O2SAT 96
[2023-08-08] MEDS: LIDOCAINE 5% (PATCH) 1 EA PATCH TP SCH (08:19)
[2023-08-08] MEDS: ENOXAPARIN SODIUM 80 MG/0.8 ML DISP.SYRIN SQ SCH ×2 (08:20→21:00)
[2023-08-08] MEDS: CLOPIDOGREL BISULFATE 75 MG TABLET PO SCH (08:20)
[2023-08-08] MEDS: GABAPENTIN 100 MG CAPSULE PO SCH ×3 (08:20→17:08)
[2023-08-08] MEDS: PANTOPRAZOLE 40 MG TABLET.DR PO SCH (08:20)
[2023-08-08] MEDS: POLYETHYLENE GLYCOL 3350 17 GM POWD.PACK PO SCH (08:20)
[2023-08-08 09:39] LABS: PARTIAL THROMBOPLASTIN TIME 29.1 SEC (24.3-34.3); PROTHROMBIN TIME 10.6 SECS (9.2-11.1)
[2023-08-08 16:00] VITALS: BP 101/69; TEMP 97.7; O2SAT 96
[2023-08-08] MEDS ORDERED: ACETAMINOPHEN 325 MG TABLET PO PRN ×2 (17:30)
[2023-08-08 20:15] VITALS: BP 95/50; TEMP 97.9; O2SAT 95
[2023-08-08 22:03] VITALS: BP 95/50; TEMP 97.9; O2SAT 95
[2023-08-09] VITALS (7 sets, daily range): BP systolic 92–125; BP diastolic 49–72; TEMP 98.2–98.6; O2SAT 93–97
[2023-08-09] MEDS: ENOXAPARIN SODIUM 80 MG/0.8 ML DISP.SYRIN SQ SCH (09:00)
[2023-08-09] MEDS: POLYETHYLENE GLYCOL 3350 17 GM POWD.PACK PO SCH ×2 (09:00→09:55)
[2023-08-09] MEDS: GABAPENTIN 100 MG CAPSULE PO SCH ×2 (09:55→13:07)
[2023-08-09] MEDS: LIDOCAINE 5% (PATCH) 1 EA PATCH TP SCH (09:55)
[2023-08-09] MEDS: CLOPIDOGREL BISULFATE 75 MG TABLET PO SCH (09:55)
[2023-08-09] MEDS: PANTOPRAZOLE 40 MG TABLET.DR PO SCH (11:09)
[2023-08-09] MEDS: HYDROCODONE/APAP 5/325MG TABLET PO PRN (11:15)
[2023-08-09 12:01] LABS: BASOPHILS % (AUTO) 0.4 % (0.0-2.0); EOSINOPHILS % (AUTO) 0.4 % (0.0-6.0); HEMATOCRIT 40 % (39-51); HEMOGLOBIN 13.5 g/dL (13.5-17.5); LYMPHOCYTES % (AUTO) 15.9 % (20.0-44.0); MEAN CORPUSCULAR HEMOGLOBIN 29 PG (26.0-33.0); MEAN CORPUSCULAR HGB CONC 34 g/dl (31.0-36.0); MEAN CORPUSCULAR VOLUME 87 fL (80-96); MONOCYTES # (AUTO) 0.7 K/uL (0.1-1.30); MONOCYTES % (AUTO) 10.5 % (2.0-12.0); NEUTROPHILS # (AUTO) 4.7 K/uL (1.8-8.9); NEUTROPHILS % (AUTO) 72.8 % (43.0-81.0); PLATELET COUNT (AUTO) 178 K/uL (150-450); RED BLOOD CELL COUNT(AUTO) 4.67 MIL/uL (4.5-6.0); RED CELL DISTRIBUTION WIDTH 14.4 % (11.5-15.0); WHITE BLOOD COUNT (AUTO) 6.5 K/uL (4.3-11.0)
[2023-08-09 12:12] LABS: CALCIUM, SERUM 8.5 mg/dL (8.5-10.1); CREATININE 0.8 mg/dL (0.6-1.3); POTASSIUM 4.3 mmol/L (3.5-5.1)
[2023-08-09] MEDS ORDERED: ACET325T53 PO (15:44)
[2023-08-09] MEDS ORDERED: POLY17PO29 PO (15:44)
[2023-08-09] MEDS ORDERED: CLOP75TA15 PO (15:44)
[2023-08-09] MEDS ORDERED: RIVA10TA PO (15:44)
[2023-08-09] MEDS ORDERED: GABA100C PO (15:44)
[2023-08-09] MEDS ORDERED: Hydrocodone/Apap 5/325MG PO (15:44)
[2023-08-09] MEDS ORDERED: HYDR-4279 PO (15:45)
== END 2023-08-09 17:00 | disposition home or self-care (01) | DRG 673 ==
LOC: ER 11:16 → TRANSITION 15:59 → TELE 07-29 14:47 → ICU 07-30 03:12 → TELE-TD 08-01 13:54 → TELE1 08-02 20:42 → TELE-TD 08-03 00:03 → TELE1 08-03 09:46 → ICU 08-04 12:36 → TELE1 08-04 18:30 → ICU 08-05 12:49 → TELE 08-06 17:25 → MED 08-09 16:39
PROVIDERS: ATTEND Nurse Practitioner Acute Care
PROC: B41DYZZ Fluoroscopy of Aorta and Bilateral Lower Extremity Arteries using Other Contrast (ICD-10-PCS; principal; 2023-08-04)
PROC: 047 Lower Arteries, Dilation (ICD-10-PCS; 2023-08-05)
DX: I12.9 Hypertensive chronic kidney disease with stage 1 through stage 4 chronic kidney disease, or unspecified chronic kidney disease (principal); I21.A1 Myocardial infarction type 2; I50.43 Acute on chronic combined systolic (congestive) and diastolic (congestive) heart failure; E87.1 Hypo-osmolality and hyponatremia; I82.621 Acute embolism and thrombosis of deep veins of right upper extremity; E44.1 Mild protein-calorie malnutrition; N17.9 Acute kidney failure, unspecified; I42.9 Cardiomyopathy, unspecified; K56.7 Ileus, unspecified; I70.221 Atherosclerosis of native arteries of extremities with rest pain, right leg; I25.10 Atherosclerotic heart disease of native coronary artery without angina pectoris; Z87.19 Personal history of other diseases of the digestive system; Z98.890 Other specified postprocedural states; Z95.5 Presence of coronary angioplasty implant and graft; Z91.199 Patient's noncompliance with other medical treatment and regimen due to unspecified reason; E78.5 Hyperlipidemia, unspecified; Z88.0 Allergy status to penicillin; F17.200 Nicotine dependence, unspecified, uncomplicated; M89.8X9 Other specified disorders of bone, unspecified site; N40.0 Benign prostatic hyperplasia without lower urinary tract symptoms; N18.9 Chronic kidney disease, unspecified; E88.09 Other disorders of plasma-protein metabolism, not elsewhere classified; Z86.79 Personal history of other diseases of the circulatory system; Z79.899 Other long term (current) drug therapy; Z79.01 Long term (current) use of anticoagulants
CPT/HCPCS: 36246; 36415; 37221; 37252; 71045-TC; 75625; 76770-TC; 80048-TC; 80053-TC; 80061-TC; 80076-TC; 81001; 82533; 82550-TC; 82553; 82570-TC; 83735-TC; 83880; 83970; 84100-TC; 84155; 84165; 84300-TC; 84443-TC; 84484-TC; 84550-TC; 85025-TC; 85347; 85610-TC; 85730-TC; 86850-TC; 87086-TC; 93307-TC; 93971-TC; 97110-TC; 97112-TC; 97116-TC; 97530-TC; A4216; A4223; A9563; C1725; C1753; C1769; C1874; C1887; C1894; G0378; G0500; J1250; J1644; J1650; J1940; J2250; J2270; J3010; J3490; J7030; J7050; J7060; P9047; Q9967